=== PATIENT | male | born 1985 | race Caucasian/White ===

== ENCOUNTER 2019-04-11 17:28 | Inpatient (IN) | payer MEDICAID, OTHER, SELFPAY ==
[2019-04-11] VITALS (8 sets, daily range): BP systolic 109–115; BP diastolic 59–75; O2SAT 96
[~2019-04-11] VITALS: Ht 175.3 cm; Wt 87.4 kg
[~2019-04-11 17:28] MED LIST: BUSP15TA47 PO; BUSP30TA PO; LAMI25TA PO; SERO200T PO
[2019-04-11] MEDS ORDERED: PROPOFOL 1,000 MG in APPROPRIATE DILUENT 1 EA IV SCH (17:45)
[2019-04-11] MEDS ORDERED: QUET1TAB10 PO (17:59)
[2019-04-11] MEDS ORDERED: PHARMACY COMMENT (18:00)
[2019-04-11 18:04] LABS: ABG pH (ARTERIAL) 7.365 UNITS (7.350-7.450)
[2019-04-11 18:05] LABS: ABG BASE EXCESS -4.2 (-2.0-2.0); ABG HCO3 20.5 MEQ/L (22.0-26.0); ABG O2 SATURATION 98.3 % (95.0-99.0); ABG PARTIAL PRESSURE CO2 36.7 mmHg (35.0-45.0); ABG PARTIAL PRESSURE O2 113.5 mmHg (75.0-100.0); ABG TOTAL CO2 21.6 MEQ/L (22.0-29.0)
[2019-04-11] MEDS ORDERED: MORPHINE 4 MG/ML 1ML VIAL/SYRINGE (J2270) IV PRN (18:30)
[2019-04-11 18:35] LABS: HEMATOCRIT 41.2 % (42.0-52.0); HEMOGLOBIN 13.8 g/dl (13.5-17.5); MEAN CORPUSCULAR HEMOGLOBIN 29.7 pg (27.0-33.0); MEAN CORPUSCULAR HGB CONC 33.5 g/dl (32.0-36.5); MEAN CORPUSCULAR VOLUME 88.6 fl (80.0-96.0); PLATELET COUNT, AUTOMATED 247 10^3/uL (150-450); RED BLOOD COUNT 4.65 10^6/uL (4.30-6.10); WHITE BLOOD COUNT 11.2 10^3/uL (4.0-10.0)
[2019-04-11 19:00] LABS: ALBUMIN 3.1 GM/DL (3.2-5.2); ALT/SGPT 22 U/L (12-78); BILIRUBIN,TOTAL 0.3 MG/DL (0.2-1.0); BLOOD UREA NITROGEN 10 MG/DL (7-18); CALCIUM LEVEL 7.9 MG/DL (8.5-10.1); CARBON DIOXIDE LEVEL 24 MEQ/L (21-32); CHLORIDE LEVEL 113 MEQ/L (98-107); CREATININE FOR GFR 0.98 MG/DL (0.70-1.30); GLOMERULAR FILTRATION RATE > 60.0 (>60); GLUCOSE, FASTING 154 MG/DL (70-100); MAGNESIUM LEVEL 2.6 MG/DL (1.8-2.4); POTASSIUM SERUM 3.6 MEQ/L (3.5-5.1); SODIUM LEVEL 143 MEQ/L (136-145); TOTAL PROTEIN 6.1 GM/DL (6.4-8.2)
--- NOTE | 2019-04-11 20:04 | HPE ---
DATE OF ADMISSION: 04/11/2019 START TIME: 175 STOP TIME: 183 HISTORY AND PHYSICAL/CRITICAL CARE ADMISSION NOTE HISTORY OF PRESENT ILLNESS: I was called to attend Lloyd Cartagena here in the emergency department. The patient has been examined and the chart reviewed and I spoke at length with his mother at the bedside. In essence, this is a 34-year-old gentleman with a longstanding tobacco history, still smoking at least a pack a day. Mother says he regularly uses marijuana. She is unsure of any other illicit street drugs. He is known to have a longstanding history of mental illness. He has had a suicide attempt by Seroquel in the past. His mother said for that reason, they monitored his medications, but as of late, he demanded that he be allowed to control his own medications. Today he presented to [facility] emergency room (ER), stating he took a very large amount of Seroquel. He had a decline in his mental status with a prolonged QT interval and was intubated there. He also received esmolol, benzodiazepines, charcoal and lidocaine while there. He was transferred here for higher level of care. Mother reports no other chronic medical illnesses. She last spoke to him just short of a week ago. LISTED ALLERGIES: None. MEDICATIONS AT HOME: - Seroquel PAST MEDICAL HISTORY: 1. Attention deficit disorder. 2. Bipolar disease. 3. Personality disorder. 4. Previous substance abuse. 5. Previous suicide attempt. 6. He has had some dental surgery and some type of vein procedure on his chest. SOCIAL HISTORY: Regular use of alcohol and at least marijuana. Continues to smoke. FAMILY HISTORY: Noncontributory to his current status. REVIEW OF SYSTEMS: Otherwise as per the history of present illness (HPI) and what could be obtained from his mother. PHYSICAL EXAMINATION: Reveals a gentleman who appears his stated age, intubated and sedated here in the emergency room (ER). Heart rate 104 and regular, blood pressure 115 systolic, respiratory rate 15-16 and he does occasionally over-breath the ventilator. He is currently afebrile. HEENT: Shows pupils are midline reactive. There is some conjunctival irritation, but no scleral edema. Nasogastric (NG) tube and oral endotracheal tube are in place. Membranes are moist. Trachea is in the midline. CHEST: Shows symmetric expansion. Rarest of rhonchi. No focal other adventitious breath sounds are identified. CARDIAC EXAM: Mildly tachycardic. Regular peripheral pulse palpable. No obvious edema. ABDOMEN: Obese, soft, with active bowel sounds. No obvious organomegaly or masses. EXTREMITIES: No cyanosis or clubbing. NEUROLOGIC: He is sedate. Chest x-ray obtained here in the ER shows the endotracheal tube and gastric tube to be in good position. No infiltrates or pneumothoraces. Blood gas done here in the ER on the current ventilator settings showed pH 7.365, PaCO2 36.7, PaO2 113.5, saturation 90.3%. It is not documented what oxygen level that is on. Chemistries are pending here. QT prolongation was noted at [facility] at QT corrected of 540. Here, down to 316. Laboratories at [facility] show white blood cell count of 10.6, hemoglobin 15.8, platelet count of 263,000. Sodium 139, potassium 3.9, chloride 100, CO2 22, BUN 11, creatinine 1.0, calcium 9.4. Coagulation studies unremarkable. Albumin 4.3, lactic acid 2.1. Salicylate and EtOH are both unremarkable. Magnesium 2.0. MOST PRESSING PROBLEMS REQUIRING MY IMMEDIATE PRESENCE AT THE BEDSIDE: 1. Seroquel overdose with altered mental status and prolonged QT interval. 2. Respiratory depression secondary to the above requiring mechanical ventilatory support. 3. Previous suicide attempt and known mental illness. At this point, we will continue on a propofol drip. He received charcoal at [facility]. His QT while here is acceptable. We will assure adequate IV hydration. He will be kept nothing by mouth. Ulcer and deep venous thrombosis (DVT) prophylaxis have been ordered. I had a long discussion with his mother at the bedside and other family members in the room regarding his critical status. Certainly, when he is able to be extubated, we will need direct involvement of psychiatry, as he clearly will need further help in that regard. At this point, he remains critically ill. We will facilitate care into the intensive care unit. I left the bedside at 1836 hours. 41 minutes of critical care time at the bedside, not including procedures.
[2019-04-11] MEDS: KCL 20MEQ IN D5/0.45NS 1000ML 1,000 ML IV SCH (20:11)
[2019-04-11] MEDS: IPRATROPIUM 0.5MG/ALBUTEROL 2.5MG INH SOL UD 3ML (DUONEB)(J7620) NEB SCH ×2 (20:11→23:27)
[2019-04-11] MEDS: PROPOFOL 1,000 MG in APPROPRIATE DILUENT 1 EA IV SCH ×2 (20:37→23:00)
[2019-04-11] MEDS ORDERED: PANTOPRAZOLE 40MG INJ (PROTONIX) (C9113) IV SCH (21:00)
[2019-04-11] MEDS: CHLORHEXIDINE GLUCONATE 0.12 % 15ML UDC (PERIDEX ORAL RINSE) MT SCH (22:31)
[2019-04-11] MEDS: HEPARIN SOD (PORCINE) 5000 UNITS/ML VIAL SC SCH (22:31)
[2019-04-11 22:36] LABS: ABG BASE EXCESS -2.1 (-2.0-2.0); ABG HCO3 23.1 MEQ/L (22.0-26.0); ABG O2 SATURATION 99.3 % (95.0-99.0); ABG PARTIAL PRESSURE CO2 40.9 mmHg (35.0-45.0); ABG PARTIAL PRESSURE O2 170.1 mmHg (75.0-100.0); ABG STANDARD HCO3 22.8 MEQ/L (22.0-26.0); ABG TOTAL CO2 24.3 MEQ/L (22.0-29.0); ABG pH (ARTERIAL) 7.369 UNITS (7.350-7.450)
[2019-04-12] VITALS (16 sets, daily range): BP systolic 99–143; BP diastolic 56–82
[2019-04-12] MEDS: PROPOFOL 1,000 MG in APPROPRIATE DILUENT 1 EA IV SCH ×2 (03:01→06:16)
[2019-04-12] MEDS: IPRATROPIUM 0.5MG/ALBUTEROL 2.5MG INH SOL UD 3ML (DUONEB)(J7620) NEB SCH ×6 (03:32→23:47)
[2019-04-12] MEDS: MIDAZOLAM INJ 2 MG/2 ML VIAL (J2250) IV PRN ×2 (04:32→05:51)
[2019-04-12] MEDS: KCL 20MEQ IN D5/0.45NS 1000ML 1,000 ML IV SCH ×2 (04:32→13:11)
[2019-04-12 05:01] LABS: BASO # 0.1 10^3/uL (0.0-0.2); BASO % 0.7 % (0.0-1.0); EOS # 0.2 10^3/uL (0.0-0.50); EOS % 2.4 % (0.0-3.0); HEMATOCRIT 43.1 % (42.0-52.0); HEMOGLOBIN 14.3 g/dl (13.5-17.5); MEAN CORPUSCULAR HEMOGLOBIN 29.7 pg (27.0-33.0); MEAN CORPUSCULAR HGB CONC 33.2 g/dl (32.0-36.5); MEAN CORPUSCULAR VOLUME 89.6 fl (80.0-96.0); MONO # 0.5 10^3/uL (0.0-0.8); MONO % 5.8 % (0.0-5.0); NEUTROPHILS % 56.9 % (36.0-66.0); PLATELET COUNT, AUTOMATED 241 10^3/uL (150-450); RED BLOOD COUNT 4.81 10^6/uL (4.30-6.10); WHITE BLOOD COUNT 8.7 10^3/uL (4.0-10.0)
[2019-04-12 05:17] LABS: ALBUMIN 3.1 GM/DL (3.2-5.2); ALT/SGPT 19 U/L (12-78); BILIRUBIN,TOTAL 0.3 MG/DL (0.2-1.0); BLOOD UREA NITROGEN 7 MG/DL (7-18); CARBON DIOXIDE LEVEL 24 MEQ/L (21-32); CHLORIDE LEVEL 114 MEQ/L (98-107); CHOLESTEROL LEVEL 164 MG/DL (< 200); CPK CREATINE PHOSPHOKINASE 55 U/L (39-308); CREATININE FOR GFR 0.97 MG/DL (0.70-1.30); GLOMERULAR FILTRATION RATE > 60.0 (>60); GLUCOSE, FASTING 131 MG/DL (70-100); LDH LACTATE DEHYDROGENASE 139 U/L (87-241); PHOSPHORUS LEVEL 2.9 MG/DL (2.5-4.9); POTASSIUM SERUM 3.5 MEQ/L (3.5-5.1); SODIUM LEVEL 146 MEQ/L (136-145); TOTAL PROTEIN 6.2 GM/DL (6.4-8.2); TRIGLYCERIDES LEVEL 183 MG/DL (<150)
[2019-04-12] MEDS: HEPARIN SOD (PORCINE) 5000 UNITS/ML VIAL SC SCH ×4 (05:55→19:40)
[2019-04-12 06:08] LABS: ABG BASE EXCESS -3.2 (-2.0-2.0); ABG HCO3 21.9 MEQ/L (22.0-26.0); ABG O2 SATURATION 97.2 % (95.0-99.0); ABG PARTIAL PRESSURE CO2 39.6 mmHg (35.0-45.0); ABG PARTIAL PRESSURE O2 95.1 mmHg (75.0-100.0); ABG STANDARD HCO3 21.8 MEQ/L (22.0-26.0); ABG TOTAL CO2 23.1 MEQ/L (22.0-29.0); ABG pH (ARTERIAL) 7.361 UNITS (7.350-7.450)
--- NOTE | 2019-04-12 08:04 | REP ---
REASON FOR EXAM: Status post intubation. PRIORS: None. The technique utilized in obtaining the radiograph has magnified the cardiac silhouette and accentuated the interstitial markings. A nasogastric tube is seen coursing the esophagus, the tip is beneath the diaphragmatic surface of the left lung presumably within the stomach. The tip of an endotracheal tube is seen in satisfactory position at the level of the aortic knob. There are a few bilateral basilar curvilinear opacities likely secondary to subsegmental atelectatic change. There is no pneumothorax. The osseous structures are within normal limits. IMPRESSION: Findings as described above. Electronically Signed by Gerson Gao DO 04/12/2019 08:30 A
[2019-04-12] MEDS: CHLORHEXIDINE GLUCONATE 0.12 % 15ML UDC (PERIDEX ORAL RINSE) MT SCH (09:00)
--- NOTE | 2019-04-12 09:18 | REP ---
HISTORY: Followup intubation. COMPARISON: 04/11/2019. The technique utilized in obtaining the radiograph has magnified the cardiac silhouette and accentuated the interstitial markings. The nasogastric tube and the endotracheal tube are unchanged. The lung harvey are essentially stable with clearing of a subtle opacity in the left CP angle, likely the result of subsegmental atelectatic change. There are no new abnormal opacities. The lung harvey are essentially. The heart is not enlarged. The osseous structures are stable. IMPRESSION: No acute cardiopulmonary disease. Findings as described above. Electronically Signed by Gerson Gao DO 04/12/2019 10:28 A
--- NOTE | 2019-04-12 10:42 | CCN ---
DATE OF SERVICE: 04/12/2019 START TIME: 829 STOP TIME: 911 I again attended Lloyd Cartagena here in the intensive care unit. Patient examined and chart reviewed. T-max overnight 97.8, heart rate generally in the 60s to 80s with a sinus mechanism. Blood pressure generally in the 130s. Respiratory rate 50 to 20 and unlabored. Inputs and outputs since admission approximately 1500 mL in with 2600 mL out. White blood cell count 8.7, hemoglobin 14.3, platelet count 241,000. No left shift. Sodium 146, potassium 3.5, chloride 114, CO2 24, BUN 7, creatinine 0.97. Blood gas done this morning on PRVC rate of 15, tidal volume 400, PEEP of 5, FiO2 of 21% show pH 7.361, pCO2 of 9.6, pO2 of 95. Chest x-ray shows no infiltrates. ET tube and NG tube in good position. On exam, he is sedate. Pupils are active. Sclera clear. Trachea is midline. Chest clear to both auscultation and percussion. Symmetric expansion. No other focal adventitious breath sounds on examination. Cardiac exam: Regular with no gallop. Peripheral pulses palpable, no edema. Abdomen soft, nontender with active bowel sounds. No hepatosplenomegaly or masses. Extremities: No cyanosis or clubbing. Neurologically, currently sedate. Propofol was discontinued. Within several minutes, he was much more interactive. Opened eyes to voice. Moves all extremities spontaneously. Good cough, good gag and was therefore extubated. Although somnolent, he is arousable. He does follow commands. Moves all extremities. Oxygen saturation 95% on room air. The most pressing problem requiring my immediate presence at the bedside: 1. Respiratory failure secondary to drug overdose. 2. Seroquel overdose with suicidal intent. 3. Mental illness. RECOMMENDATIONS: At this point, he has been extubated. I have spoken with Dr. Saida Smith who will assume his care from the hospitalist service. He will need a psychiatric evaluation as clearly he needs more help regarding his mental issues. He remains on ulcer and deep venous thrombosis (DVT) prophylaxis. He remains on aerosol therapy as he is a long time and continued tobacco abuser. No evidence of any infectious process, therefore no antibiotics are warranted. My hopes is that in the long run, he can get better control of his mental illness as this is at least second documented suicide attempt. I have spoke with Dr. Smith regarding his status. I left the bedside at 0912 hours. 42 minutes of critical care time at the bedside not including procedures.
--- NOTE | 2019-04-12 12:58 | HPEPDOC ---
General Date of Admission April 11, 2019 at 18:17 Chief Complaint The patient is a 34-year-old male admitted with a reason for visit of Od/ Respi ratory Failure Requiring Intubation. Source: Patient, RN/, Old records History of Present Illness This is a 34-year-old male with PMH of Depression and suicidal attempt in the past, Bipolar disorder, personality disorder, polysubstance use disorder, with a longstanding tobacco history, still smoking at least a pack a day, regularly uses marijuana was transferred here from [place] after a suicidal attempt with seroquel. He has had a suicide attempt by Seroquel in the past. His mother had said for that reason, they monitored his medications, but as of late, he demanded that he be allowed to control his own medications. He presented to [facility] emergency room (ER) on 04/11/19 stating he took a very large amount of Seroquel. He had a decline in his mental status with a prolonged QT interval and was intubated there. He also received esmolol, benzodiazepines, charcoal and lidocaine while there. He was transferred here for higher level of care. 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 This morning he was successfully extubated and transferred to the hospitalist service. On my interview he was somnolent but cooperative. He did say he took the seroquel as he wanted to kill himself. When i asked why he said that he did not like his life and has many problems in his life. When i asked what particularly happened that day to make him take the pills. He said "I do not want to go into it it is irrelevant". He complained of some cough has been just extubated and complained of a little soreness in his throat. He had the NG tube in which was connected to low suction with no output which was bothering his throat. Denied any SOB. Home Medications Scheduled Quetiapine Fumarate (Quetiapine Fumarate) 300 Mg Tablet, 300 MG PO QHS, (Reported) HAS NOT FILLED SINCE SEPTEMBER 2018 Miscellaneous Medications [Pharmacy Comment] , (Reported) OBTAINED MED LIST FROM PHARMACY Allergies Coded Allergies: No Known Allergies (Unverified , 10/14/14) Past Medical History Medical History Attention deficit disorder. Bipolar disease. Personality disorder. Previous substance abuse. Previous suicide attempt. 6. He has had some dental surgery and some type of vein procedure on his chest. Surgical History He has had some dental surgery and some type of vein procedure on his chest. Family History Mother healthy. Father with multiple cardiac surgeries. Siblings are healthy Social History * Smoker: current smoker Alcohol: other (daily use) Drugs: marijuana A-FIB/CHADSVASC A-FIB History Current/History of A-Fib/PAF?: No Review of Systems Constitutional: Denies: Chills, Fever, Night Sweats Eyes: Denies: Pain, Vision change ENT: Reports: Sore Throat; Denies: Head Aches, Ear Pain, Dysphagia Skin: Denies: Rash, Lesions, Breakdown Pulmonary: Reports: Cough; Denies: Dyspnea Cardiovascular: Denies: Chest Pain, Palpitations, Orthopnea, Paroxysmal Noc. Dyspnea, Lt Headedness Gastrointestinal: Denies: Nausea, Vomiting, Abdominal Pain, Diarrhea Hematologic: Denies: Bruising, Bleeding Excessively Musculoskeletal: Denies: Neck Pain, Back Pain, Joint Pain, Muscle Pain, Spasms Psych: Reports: Depression, Thoughts of Self Harm Physical Examination General Exam: Positive: Cooperative, No Acute Distress, Other (somnolent) Eye Exam: Positive: PERRLA, Conjunctiva & lids normal, EOMI; Negative: Sclera icteric ENT Exam: Positive: Atraumatic, Mucous membr. moist/pink, Pharynx Normal Neck Exam: Positive: Supple; Negative: JVD, thyromegaly Chest Exam: Positive: Clear to auscultation, Normal air movement Heart Exam: Positive: Rate Normal, Regular Rhythm, Normal S1, Normal S2; Negative: Murmurs, Rubs Telemetry: Positive: No significant arrhythmia Abdomen Exam: Positive: Normal bowel sounds, Soft; Negative: Tenderness, Hepatospenomegaly Extremity Exam: Positive: Normal pulses; Negative: Clubbing, Cyanosis, Edema Skin Exam: Positive: Nl turgor and temperature; Negative: Breakdown, Lesion Psych Exam: Positive: Memory Intact, Oriented x 3 Vital Signs Vital Signs Date Time Temp Pulse Resp B/P (MAP) Pulse Ox O2 Delivery O2 Flow Rate FiO2 04/12/19 07:30 68 15 98 21 04/12/19 04:00 97.8 135/82 (99) 04/11/19 20:37 Ventilator Laboratory Data Labs 24H Laboratory Tests 2 04/11/19 17:45: Blood Gas Bicarbonate Standard 21.0L, Arterial Blood pH 7.365, Arterial Blood Partial Pressure CO2 36.7, Arterial Blood Partial Pressure O2 113.5H, Arterial Blood Total CO2 21.6L, Arterial Blood HCO3 20.5L, Arterial Blood Base Excess - 4.2L, Arterial Blood Oxygen Saturation 98.3 04/11/19 18:15: Nucleated Red Blood Cells % (auto) 0.0, Anion Gap 6L, Glomerular Filtration Rate > 60.0, Blood Urea Nitrogen 10, Creatinine 0.98, Sodium Level 143, Potassium Level 3.6, Chloride Level 113H, Carbon Dioxide Level 24, Calcium Level 7.9L, Aspartate Amino Transf (AST/SGOT) 12, Alanine Aminotransferase (ALT/SGPT) 22, Alkaline Phosphatase 76, Total Bilirubin 0.3, Total Protein 6.1L, Albumin 3.1L, Magnesium Level 2.6H, Albumin/Globulin Ratio 1.03 04/11/19 22:24: Blood Gas Bicarbonate Standard 22.8, Arterial Blood pH 7.369, Arterial Blood Partial Pressure CO2 40.9, Arterial Blood Partial Pressure O2 170.1H, Arterial Blood Total CO2 24.3, Arterial Blood HCO3 23.1, Arterial Blood Base Excess - 2.1L, Arterial Blood Oxygen Saturation 99.3H 04/12/19 04:35: Nucleated Red Blood Cells % (auto) 0.0, Anion Gap 8, Glomerular Filtration Rate > 60.0, Blood Urea Nitrogen 7, Creatinine 0.97, Sodium Level 146H, Potassium Level 3.5, Chloride Level 114H, Carbon Dioxide Level 24, Calcium Level 8.0L, Aspartate Amino Transf (AST/SGOT) 10, Alanine Aminotransferase (ALT/SGPT) 19, Alkaline Phosphatase 75, Total Bilirubin 0.3, Total Protein 6.2L, Albumin 3.1L, Albumin/Globulin Ratio 1.00, Immature Granulocyte % (Auto) 0.2, White Blood Count 8.7, Red Blood Count 4.81, Hemoglobin 14.3, Hematocrit 43.1, Mean Corpuscular Volume 89.6, Mean Corpuscular Hemoglobin 29.7, Mean Corpuscular Hemoglobin Concent 33.2, Red Cell Distribution Width 13.1, Platelet Count 241, Neutrophils (%) (Auto) 56.9, Lymphocytes (%) (Auto) 34.0, Monocytes (%) (Auto) 5.8H, Eosinophils (%) (Auto) 2.4, Basophils (%) (Auto) 0.7, Neutrophils # (Auto) 5.0, Lymphocytes # (Auto) 3.0, Monocytes # (Auto) 0.5, Eosinophils # (Auto) 0.2, Basophils # (Auto) 0.1, Phosphorus Level 2.9, Lactate Dehydrogenase 139, Total Creatine Kinase 55, Triglycerides Level 183H, Cholesterol Level 164 04/12/19 05:54: Blood Gas Bicarbonate Standard 21.8L, Arterial Blood pH 7.361, Arterial Blood Partial Pressure CO2 39.6, Arterial Blood Partial Pressure O2 95.1, Arterial Blood Total CO2 23.1, Arterial Blood HCO3 21.9L, Arterial Blood Base Excess - 3.2L, Arterial Blood Oxygen Saturation 97.2 CBC/BMP Laboratory Tests 04/11/19 18:15 Red Blood Count 4.65, Mean Corpuscular Volume 88.6, Mean Corpuscular Hemoglobin 29.7, Mean Corpuscular Hemoglobin Concent 33.5, Red Cell Distribution Width 13.0, Calcium Level 7.9 L, Aspartate Amino Transf (AST/SGOT) 12, Alanine Aminotransferase (ALT/SGPT) 22, Alkaline Phosphatase 76, Total Bilirubin 0.3, Total Protein 6.1 L, Albumin 3.1 L 04/12/19 04:35 Red Blood Count 4.81, Mean Corpuscular Volume 89.6, Mean Corpuscular Hemoglobin 29.7, Mean Corpuscular Hemoglobin Concent 33.2, Red Cell Distribution Width 13.1, Calcium Level 8.0 L, Aspartate Amino Transf (AST/SGOT) 10, Alanine Aminotransferase (ALT/SGPT) 19, Alkaline Phosphatase 75, Total Bilirubin 0.3, Total Protein 6.2 L, Albumin 3.1 L, Neutrophils (%) (Auto) 56.9, Lymphocytes (%) (Auto) 34.0, Monocytes (%) (Auto) 5.8 H, Eosinophils (%) (Auto) 2.4, Basophils (%) (Auto) 0.7, Neutrophils # (Auto) 5.0, Lymphocytes # (Auto) 3.0, Monocytes # (Auto) 0.5, Eosinophils # (Auto) 0.2, Basophils # (Auto) 0.1, Phosphorus Level 2.9, Lactate Dehydrogenase 139, Total Creatine Kinase 55, Triglycerides Level 183 H, Cholesterol Level 164 Assessment/Plan This is a 34-year-old male with PMH of Depression and suicidal attempt in the past, Bipolar disorder, personality disorder, polysubstance use disorder, with a longstanding tobacco history, still smoking at least a pack a day, regularly u ses marijuana was transferred here from [place] after a suicidal attempt with seroquel. He has had a suicide attempt by Seroquel in the past. His mother said for that reason, they monitored his medications, but as of late, he demanded that he be allowed to control his own medications. He presented to [facility] emergency room (ER) on 04/11/19 stating he took a very large amount of Seroquel. He had a decline in his mental status with a prolonged QT interval and was intubated there. He also received esmolol, benzodiazepines, charcoal and lidocaine while there. He was transferred here for higher level of care. 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 This morning he was s uccessfully extubated and transferred to the hospitalist service. Toxic Metabolic encephalopathy due to drug overdose requiring intubation and mechanical ventilation for airway protection successfully extubated on 04/12/19 QT prolongation due to Seroquel seen in EKG of other hospital . We had 3 ekgs here none of them showed QTc prolongation Intentional drug overdose with seroquel treated as per poison control recommendations. continue one on one observation Multiple Psychiatric issues will consult psychiatry will probably need [facility] admission. Plan / VTE VTE Prophylaxis Ordered?: Yes FOREST HARDIN MD April 12, 2019 12:50
[2019-04-12] MEDS: NICOTINE 14 MG/24 HR TRANSDERMAL TD SCH (14:55)
--- NOTE | 2019-04-12 15:11 | ECGEPIP ---
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
--- NOTE | 2019-04-12 15:12 | ECGEPIP ---
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 Not significantly changed from the previous day. Electronically Signed On 04-12-2019 15:12:45 EDT by Bertrand Lopes
--- NOTE | 2019-04-12 17:47 | ECGEPIP ---
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
[2019-04-13] MEDS: IPRATROPIUM 0.5MG/ALBUTEROL 2.5MG INH SOL UD 3ML (DUONEB)(J7620) NEB SCH ×2 (03:02→08:00)
[2019-04-13] MEDS: HEPARIN SOD (PORCINE) 5000 UNITS/ML VIAL SC SCH (03:03)
[2019-04-13 06:00] VITALS: BP 122/86
[2019-04-13 06:02] LABS: BASO # 0.1 10^3/uL (0.0-0.2); BASO % 1.2 % (0.0-1.0); EOS # 0.2 10^3/uL (0.0-0.50); EOS % 2.5 % (0.0-3.0); HEMATOCRIT 43.9 % (42.0-52.0); HEMOGLOBIN 14.4 g/dl (13.5-17.5); LYMPH % 36.9 % (24.0-44.0); MEAN CORPUSCULAR HEMOGLOBIN 29.3 pg (27.0-33.0); MEAN CORPUSCULAR HGB CONC 32.8 g/dl (32.0-36.5); MEAN CORPUSCULAR VOLUME 89.2 fl (80.0-96.0); MONO # 0.6 10^3/uL (0.0-0.8); NEUTROPHILS # 4.3 10^3/uL (1.8-7.7); NEUTROPHILS % 52.2 % (36.0-66.0); PLATELET COUNT, AUTOMATED 243 10^3/uL (150-450); RED BLOOD COUNT 4.92 10^6/uL (4.30-6.10); WHITE BLOOD COUNT 8.2 10^3/uL (4.0-10.0)
[2019-04-13 06:26] LABS: ALBUMIN 2.9 GM/DL (3.2-5.2); ALT/SGPT 13 U/L (12-78); BILIRUBIN,TOTAL 0.2 MG/DL (0.2-1.0); BLOOD UREA NITROGEN 9 MG/DL (7-18); CALCIUM LEVEL 8.2 MG/DL (8.5-10.1); CARBON DIOXIDE LEVEL 25 MEQ/L (21-32); CHLORIDE LEVEL 113 MEQ/L (98-107); CHOLESTEROL LEVEL 140 MG/DL (< 200); CPK CREATINE PHOSPHOKINASE 49 U/L (39-308); CREATININE FOR GFR 0.97 MG/DL (0.70-1.30); GLOMERULAR FILTRATION RATE > 60.0 (>60); GLUCOSE, FASTING 88 MG/DL (70-100); LDH LACTATE DEHYDROGENASE 164 U/L (87-241); PHOSPHORUS LEVEL 4.3 MG/DL (2.5-4.9); POTASSIUM SERUM 3.6 MEQ/L (3.5-5.1); SODIUM LEVEL 143 MEQ/L (136-145); TOTAL PROTEIN 6.1 GM/DL (6.4-8.2); TRIGLYCERIDES LEVEL 121 MG/DL (<150)
[2019-04-13] MEDS: NICOTINE 14 MG/24 HR TRANSDERMAL TD SCH (09:00)
--- NOTE | 2019-04-13 10:11 | DS.PDOC ---
Discharge Summary General Date of Admission April 11, 2019 at 18:17 Date of Discharge 04/13/19 Discharge Summary PROCEDURES PERFORMED DURING STAY: [None]. DISCHARGE DIAGNOSES: Acute respiratory failure due to drug overdose Toxic metabolic encephalopathy due to drug overdose. Suicidal attempt By Seroquel Polysubstance dependence smoker Multiple psychiatric issues. COMPLICATIONS/CHIEF COMPLAINT: Od/ Respiratory Failure Requiring Intubation. HISTORY OF PRESENT ILLNESS: See history and physical HOSPITAL COURSE: This is a 34-year-old male with PMH of Depression and suicidal attempt in the past, Bipolar disorder, personality disorder, polysubstance use disorder, with a longstanding tobacco history, still smoking at least a pack a day, regularly uses marijuana was transferred here from [place] after a suicidal attempt with seroquel. He has had a suicide attempt by Seroquel in the past. His mother said for that reason, they monitored his medications, but as of late, he demanded that he be allowed to control his own medications. He presented to [place] emergency room (ER) on 04/11/19 stating he took a very large amount of Seroquel. He had a decline in his mental status with a prolonged QT interval and was intubated there. He also received esmolol, benzodiazepines, charcoal and lidocaine while there. He was transferred here for higher level of care. He was admitted directly to ICU under the fur drummer's care.the next day he was successfully extubated and transferred to the hospitalist service. Toxic Metabolic encephalopathy and acute respiratory failure due to drug overdose requiring intubation and mechanical ventilation for airway protection successfully extubated on 04/12/19 QT prolongation due to Seroquel seen in EKG of other hospital . We had 3 ekgs here none of them showed QTc prolongation telemetry did not show any cardiac arrhythmias. Intentional drug overdose with seroquel treated as per poison control recommendations. continue one on one observation Multiple Psychiatric issues will need to go to Inpatient mental health. DISCHARGE MEDICATIONS: Please see below. ALLERGIES: Please see below. PHYSICAL EXAMINATION ON DISCHARGE: VITAL SIGNS: Please see below. General Exam: Positive: Cooperative, No Acute Distress Eye Exam: Positive: PERRLA, Conjunctiva & lids normal, EOMI; Negative: Sclera icteric ENT Exam: Positive: Atraumatic, Mucous membr. moist/pink, Pharynx Normal Neck Exam: Positive: Supple; Negative: JVD, thyromegaly Chest Exam: Positive: Clear to auscultation, Normal air movement Heart Exam: Positive: Rate Normal, Regular Rhythm, Normal S1, Normal S2; Negative: Murmurs, Rubs Telemetry: Positive: No significant arrhythmia Abdomen Exam: Positive: Normal bowel sounds, Soft; Negative: Tenderness, Hepatospenomegaly Extremity Exam: Positive: Normal pulses; Negative: Clubbing, Cyanosis, Edema Skin Exam: Positive: Nl turgor and temperature; Negative: Breakdown, Lesion Psych Exam: Positive: Memory Intact, Oriented x 3 LABORATORY DATA: Please see below. ACTIVITY: [As tolerated]. DIET: As tolerated DISPOSITION: [facility] DISCHARGE INSTRUCTIONS: Follow up with PMD 2 weeks aftr discharge DISCHARGE CONDITION: [Stable]. TIME SPENT ON DISCHARGE: 25 mins. Vital Signs/I&Os Vital Signs Date Time Temp Pulse Resp B/P (MAP) Pulse Ox O2 Delivery O2 Flow Rate FiO2 04/13/19 06:00 98.2 81 18 122/86 (98) 97 04/12/19 11:00 40 04/11/19 20:37 Ventilator I&O- Last 24 Hours up to 6 AM 04/13/19 06:00 Intake Total 2170 ml Output Total 450 ml Balance 1720 ml Laboratory Data Labs 24H Laboratory Tests 2 04/13/19 05:30: Immature Granulocyte % (Auto) 0.2, White Blood Count 8.2, Red Blood Count 4.92, Hemoglobin 14.4, Hematocrit 43.9, Mean Corpuscular Volume 89.2, Mean Corpuscular Hemoglobin 29.3, Mean Corpuscular Hemoglobin Concent 32.8, Red Cell Distribution Width 13.3, Platelet Count 243, Neutrophils (%) (Auto) 52.2, Lymphocytes (%) (Auto) 36.9, Monocytes (%) (Auto) 7.0H, Eosinophils (%) (Auto) 2.5, Basophils (%) (Auto) 1.2H, Neutrophils # (Auto) 4.3, Lymphocytes # (Auto) 3.0, Monocytes # (Auto) 0.6, Eosinophils # (Auto) 0.2, Basophils # (Auto) 0.1, Nucleated Red Blood Cells % (auto) 0.0, Anion Gap 5L, Glomerular Filtration Rate > 60.0, Blood Urea Nitrogen 9, Creatinine 0.97, Sodium Level 143, Potassium Level 3.6, Chloride Level 113H, Carbon Dioxide Level 25, Calcium Level 8.2L, Phosphorus Level 4.3#, Aspartate Amino Transf (AST/SGOT) 14, Alanine Aminotransferase (ALT/SGPT) 13, Lactate Dehydrogenase 164, Total Creatine Kinase 49, Alkaline Phosphatase 77, Total Bilirubin 0.2, Triglycerides Level 121, Cholesterol Level 140, Total Protein 6.1L, Albumin 2.9L, Albumin/Globulin Ratio 0.91L CBC/BMP Laboratory Tests 04/13/19 05:30 Red Blood Count 4.92, Mean Corpuscular Volume 89.2, Mean Corpuscular Hemoglobin 29.3, Mean Corpuscular Hemoglobin Concent 32.8, Red Cell Distribution Width 13.3, Neutrophils (%) (Auto) 52.2, Lymphocytes (%) (Auto) 36.9, Monocytes (%) (Auto) 7.0 H, Eosinophils (%) (Auto) 2.5, Basophils (%) (Auto) 1.2 H, Neutrophils # (Auto) 4.3, Lymphocytes # (Auto) 3.0, Monocytes # (Auto) 0.6, Eosinophils # (Auto) 0.2, Basophils # (Auto) 0.1, Calcium Level 8.2 L, Phosphorus Level 4.3 #, Aspartate Amino Transf (AST/SGOT) 14, Alanine Aminotransferase (ALT/SGPT) 13, Lactate Dehydrogenase 164, Total Creatine Kinase 49, Alkaline Phosphatase 77, Total Bilirubin 0.2, Triglycerides Level 121, Cholesterol Level 140, Total Protein 6.1 L, Albumin 2.9 L Discharge Medications Scheduled Quetiapine Fumarate (Quetiapine Fumarate) 300 Mg Tablet, 300 MG PO QHS, (Re ported) HAS NOT FILLED SINCE SEPTEMBER 2018 Miscellaneous Medications [Pharmacy Comment] , (Reported) OBTAINED MED LIST FROM PHARMACY Allergies Coded Allergies: No Known Allergies (Unverified , 10/14/14) FOREST HARDIN MD April 13, 2019 10:11
[2019-04-13] MEDS ORDERED: NICO14PA TD (10:13)
== END 2019-04-13 11:26 | disposition home or self-care (01) | DRG 812 ==
LOC: M ED 17:28 → EDBD 17:28 → M ED INP 18:17 → M ICU 19:47 → M MSPAV 04-12 15:22
PROVIDERS: ADMIT Internal Medicine Pulmonary Disease; ATTEND Internal Medicine Nephrology
PROC: 5A1935Z Respiratory Ventilation, Less than 24 Consecutive Hours (ICD-10-PCS; principal; 2019-04-11)
DX: T43.592A Poisoning by other antipsychotics and neuroleptics, intentional self-harm, initial encounter (principal); G92 Toxic encephalopathy; J96.00 Acute respiratory failure, unspecified whether with hypoxia or hypercapnia; F17.200 Nicotine dependence, unspecified, uncomplicated; F31.9 Bipolar disorder, unspecified; F12.90 Cannabis use, unspecified, uncomplicated; F90.9 Attention-deficit hyperactivity disorder, unspecified type

== ENCOUNTER 2019-04-13 10:28 | Inpatient (IN) | payer SELFPAY ==
[~2019-04-13] VITALS: Ht 167.6 cm; Wt 79.5 kg
[2019-04-13] MEDS: FLUoxetine 20 MG CAP PO SCH (09:00)
[~2019-04-13 10:28] MED LIST changes: +NICO14PA TD; +PHARMACY COMMENT; +QUET1TAB10 PO
[2019-04-13] MEDS ORDERED: ACETAMINOPHEN TAB 650MG DOSE (2X325MG) PO PRN (11:30)
[2019-04-13] MEDS ORDERED: MAALOX 30 ML SUSP *UDC PO PRN (11:30)
[2019-04-13] MEDS ORDERED: MOM 30ML SUSPENSION UDC PO PRN (11:30)
[2019-04-13] MEDS ORDERED: traZODone 50 MG TAB PO PRN (11:30)
[2019-04-13 11:39] VITALS: BP 138/95
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
[2019-04-13] MEDS ORDERED: traZODone 100 MG TAB PO PRN (13:15)
--- NOTE | 2019-04-13 17:13 | HPEPDOC ---
General Date of Admission April 13, 2019 at 10:28 Attending Physician: MARTY KIM MD Chief Complaint The patient is a 34-year-old male admitted with a reason for visit of Bipolar 2,Substance Abuse. Source: RN/MD Exam Limitations: Clinical conditions Timing/Duration: Unsure Severity: Severe Associated Symptoms: Unobtainable History of Present Illness Patient is a 34-year-old male, admitted after suicide attempt. Patient was initially intubated and then extubated and transferred to the inpatient psychiatric unit for evaluation and management of depression and suicidal behavior. On evaluation, he was on willing to provide history. He states he has answered all these questions before Home Medications Scheduled Nicotine (Nicotine Patch) 14 Mg Patch.td24, 1 PATCH TD DAILY Quetiapine Fumarate (Quetiapine Fumarate) 300 Mg Tablet, 300 MG PO QHS, (Reported) HAS NOT FILLED SINCE SEPTEMBER 2018 Miscellaneous Medications [Pharmacy Comment] , (Reported) OBTAINED MED LIST FROM PHARMACY Allergies Coded Allergies: No Known Allergies (Unverified , 10/14/14) Past Medical History Medical History Depression Nicotine dependence Polysubstance abuse ADD Antisocial Personality Cyclothymic disorder A-FIB/CHADSVASC A-FIB History Current/History of A-Fib/PAF?: No Current Oral Anticoagulant The: No Review of Systems Other systems Not completed due to patients clinical state and reluctance Physical Examination Other physical findings GENERAL: NAD SKIN : Warm, dry intact HEENT: Atraumatic, normocephalic, PERRL, moist mucous membrane CARDIOVASCULAR: Regular rate and rhythm, S1S2, no JVD, no edema, distal pulses + and palpable RESP: CTAB, no accessory muscle use noted ABDOMEN: BS+ non distended non tender MS: no joint deformities NEURO: Alert and oriented x 3, CN2-12 grossly intact PSYCH: flat affect Vital Signs Vital Signs Date Time Temp Pulse Resp B/P (MAP) Pulse Ox O2 Delivery O2 Flow Rate FiO2 04/13/19 11:39 98.4 75 16 138/95 (109) 98 Assessment/Plan Suicide attempt Cardiopulmonary arrest Nicotine dependence PLAN -Patient has been stabilized medically and his status post intubation and extubation -All his problems at this time are psychiatric in nature -Continued management by primary team DVT prophylaxis not indicated at this time since patient is frequently ambulatory and low risk for DVT Plan / VTE VTE Prophylaxis Ordered?: No VTE Exclusion Mechanical Proph: Low Risk for VTE GINO PADGETT. SQL DAT[employer]ASE PROGRAMMER April 13, 2019 17:13
[2019-04-13 18:00] VITALS: BP 130/70
[2019-04-13] MEDS: hydrOXYzine 50 MG TAB PO PRN ×2 (18:35→22:35)
[2019-04-13] MEDS: QUEtiapine FUMARATE 100 MG TAB PO SCH (20:19)
[2019-04-13] MEDS ORDERED: NICOTINE 21MG/24HR 1 EA TRANSDERMAL TD ONE (20:30)
[2019-04-13] MEDS ORDERED: NICOTINE 14 MG/24 HR TRANSDERMAL TD ONE (20:30)
[2019-04-14 06:43] VITALS: BP 111/59
[2019-04-14] MEDS: FLUoxetine 20 MG CAP PO SCH ×2 (09:00→15:46)
[2019-04-14] MEDS: NICOTINE 14 MG/24 HR TRANSDERMAL TD SCH (09:00)
[2019-04-14] MEDS: hydrOXYzine 50 MG TAB PO PRN ×3 (12:17→21:23)
[2019-04-14] MEDS ORDERED: traZODone 50 MG TAB PO PRN (15:45)
--- NOTE | 2019-04-14 15:56 | MHIPNPDOC ---
[facility] Progress Note Progress Note DATE OF SERVICE: 04/14/19 HISTORY: 34-year-old male in long-standing relationship that has resulted in numerous rights and suicide attempts over the years. He had this is complicated by patient's polysubstance abuse. VITAL SIGNS: See below. NEW TEST RESULTS: . CURRENT MEDICATIONS: See below. MENTAL STATUS EXAMINATION: Patient is a, 34-year old male, who is, requesting more medications for anxiety., Not expressing any suicidal thought at this time Speech: Is, normal. Language skills are adequate. Thought processes including:. No disturbance of thought process, except minimization. Thought content: Requesting medications. Abstract reasoning, and computation: Intact. Description of associations:. Loose associations. Description of abnormal or psychotic thoughts:. No psychotic thought. Judgment:, Poor. Insight:, Poor. Orientation:, Fully oriented. Recent and remote memory: Intact. Attention span and concentration:. No disturbance. Language: As above. Fund of knowledge:. Full. Mood: Euthymic. Affect:, Neutral. DIAGNOSES: 1. Adjustment disorder with depressed mood. 2.. Mixed personality disorder. 3. Polysubstance abuse. ASSESSMENT: Following argument with girlfriend of many years. Patient made lawrence cide attempt using Seroquel overdose and needing ventilator. Patient uses cocaine and amphetamines, as well as Seroquel, which he overdosed on MANAGEMENT PLAN: Prescribed Atarax 100 mg when necessary, and Prozac with smaller dose of Seroquel based on past history outpatient planning will be problematic. TIME SPENT:, 30 minutes. Vital Signs Vital Signs Date Time Temp Pulse Resp B/P (MAP) Pulse Ox O2 Delivery O2 Flow Rate FiO2 04/14/19 06:43 96.9 73 14 111/59 (76) 04/13/19 11:39 98 Current Medications Current Medications Acetaminophen (Tylenol Tab) 650 mg Q6HP PRN PO HEADACHE or DISCOMFORT; Start 04/13/19 at 11:30 Al Hydrox/Mg Hydrox/Simethicone (Mylanta) 30 ml Q4HP PRN PO HEARTBURN/INDIGESTION; Start 04/13/19 at 11:30 Fluoxetine HCl (PROzac) 20 mg QAM PO ; Start 04/13/19 at 09:00 Hydroxyzine HCl (Atarax) 50 mg Q4HP PRN PO ANXIETY/AGITATION Last administered on 04/14/19at 12:17; Start 04/13/19 at 18:30 Magnesium Hydroxide (Milk Of Magnesia) 30 ml DAILYPRN PRN PO CONSTIPATION; Start 04/13/19 at 11:30 Nicotine (Nicoderm Cq 14mg) 1 patch DAILY TD ; Start 04/14/19 at 09:00 Quetiapine Fumarate (SEROquel) 100 mg QHS PO Last administered on 04/13/19at 20:19; Start 04/13/19 at 21:00 Trazodone HCl (Desyrel) 50 mg QHSP PRN PO INSOMNIA; Start 04/13/19 at 11:30; Stop 04/13/19 at 13:17; Status DC Trazodone HCl (Desyrel) 100 mg QHSP PRN PO INSOMNIA; Start 04/13/19 at 13:15 Allergies Coded Allergies: No Known Allergies (Unverified , 10/14/14) A-FIB/CHADSVASC A-FIB History Current/History of A-Fib/PAF?: No Current Oral Anticoagulant The: No Treatment Treatment ordered: NONE MARIA TAO MD April 14, 2019 15:56
[2019-04-14 18:04] VITALS: BP 142/70
[2019-04-14] MEDS: QUEtiapine FUMARATE 100 MG TAB PO SCH (21:23)
[2019-04-15] MEDS: hydrOXYzine 50 MG TAB PO PRN ×4 (01:37→20:24)
[2019-04-15] MEDS: NICOTINE 14 MG/24 HR TRANSDERMAL TD SCH (08:46)
[2019-04-15] MEDS ORDERED: FLUoxetine 10 MG CAP PO SCH (09:00)
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
[2019-04-15 18:00] VITALS: BP 139/80
[2019-04-15] MEDS: QUEtiapine FUMARATE 100 MG TAB PO SCH (20:25)
[2019-04-15] MEDS: MIRTAZAPINE 15 MG TAB PO SCH (20:25)
[2019-04-16 06:49] VITALS: BP 113/66
[2019-04-16] MEDS: NICOTINE 14 MG/24 HR TRANSDERMAL TD SCH (09:00)
[2019-04-16] MEDS: FLUoxetine 20 MG CAP PO SCH (09:51)
[2019-04-16] MEDS: hydrOXYzine 50 MG TAB PO PRN ×3 (11:43→20:27)
--- NOTE | 2019-04-16 14:21 | MHIPNPDOC ---
[facility] Progress Note Progress Note DATE OF SERVICE: 04/16/19 HISTORY: 34-year-old male with polysubstance abuse and relationship problems admitted after making profound suicide attempt and Seroquel. VITAL SIGNS: See below. NEW TEST RESULTS:. None. CURRENT MEDICATIONS: See below. MENTAL STATUS EXAMINATION: Patient is a 34-year old male, who is improved mood and denies suicidal plan or ideation at this time. Speech: Is intact. Language skills are intact. Thought processes including:. No psychotic thoughts. Thought content:, Preoccupied with girlfriend. Abstract reasoning, and computation: Able to abstract. Description of associations: Loose association. Description of abnormal or psychotic thoughts:. No psychotic thoughts. Judgment:, Poor. Insight:, Poor. Orientation: Intact. Recent and remote memory: Intact. Attention span and concentration: In intact. Language:. No disturbance. Fund of knowledge: Intact. Mood:. Bright. Affect:, Cheerful. DIAGNOSES: 1. Major depression. 2., Polysubstance abuse. 3., Relationship stressors. ASSESSMENT:. As above MANAGEMENT PLAN:. Outpatient management. TIME SPENT:, 30 minutes. Vital Signs Vital Signs Date Time Temp Pulse Resp B/P (MAP) Pulse Ox O2 Delivery O2 Flow Rate FiO2 04/16/19 06:49 97.3 63 14 113/66 (82) 04/13/19 11:39 98 Current Medications Current Medications Acetaminophen (Tylenol Tab) 650 mg Q6HP PRN PO HEADACHE or DISCOMFORT; Start 04/13/19 at 11:30 Al Hydrox/Mg Hydrox/Simethicone (Mylanta) 30 ml Q4HP PRN PO HEARTBURN/INDIGESTION; Start 04/13/19 at 11:30 Fluoxetine HCl (PROzac) 20 mg QAM PO Last administered on 04/14/19at 15:46; Start 04/13/19 at 09:00; Stop 04/15/19 at 07:57; Status DC Fluoxetine HCl (PROzac) 30 mg QAM PO Last administered on 04/15/19at 08:43; Start 04/15/19 at 09:00; Stop 04/15/19 at 15:29; Status DC Fluoxetine HCl (PROzac) 40 mg QAM PO Last administered on 04/16/19at 09:51; Start 04/16/19 at 09:00 Hydroxyzine HCl (Atarax) 50 mg Q4HP PRN PO ANXIETY/AGITATION Last administered on 04/14/19at 12:17; Start 04/13/19 at 18:30; Stop 04/14/19 at 15:43; Status DC Hydroxyzine HCl (Atarax) 100 mg Q4HP PRN PO ANXIETY/AGITATION Last administered on 04/16/19at 11:43; Start 04/14/19 at 15:45 Magnesium Hydroxide (Milk Of Magnesia) 30 ml DAILYPRN PRN PO CONSTIPATION; Start 04/13/19 at 11:30 Mirtazapine (Remeron) 30 mg QHS PO Last administered on 04/15/19at 20:25; Start 04/15/19 at 21:00 Nicotine (Nicoderm Cq 14mg) 1 patch DAILY TD ; Start 04/14/19 at 09:00 Quetiapine Fumarate (SEROquel) 100 mg QHS PO Last administered on 04/14/19at 21:23; Start 04/13/19 at 21:00; Stop 04/15/19 at 07:57; Status DC Quetiapine Fumarate (SEROquel) 200 mg QHS PO Last administered on 04/15/19at 20:25; Start 04/15/19 at 21:00 Trazodone HCl (Desyrel) 50 mg QHSP PRN PO INSOMNIA; Start 04/13/19 at 11:30; Stop 04/13/19 at 13:17; Status DC Trazodone HCl (Desyrel) 100 mg QHSP PRN PO INSOMNIA; Start 04/13/19 at 13:15; Stop 04/14/19 at 15:43; Status DC Trazodone HCl (Desyrel) 150 mg QHSP PRN PO INSOMNIA Last administered on 04/14/19at 21:23; Start 04/14/19 at 15:45; Stop 04/15/19 at 07:57; Status DC Allergies Coded Allergies: No Known Allergies (Unverified , 10/14/14) A-FIB/CHADSVASC A-FIB History Current/History of A-Fib/PAF?: No Current Oral Anticoagulant The: No Treatment Treatment ordered: NONE MARIA TAO MD April 16, 2019 14:21
[2019-04-16 18:35] VITALS: BP 124/76
[2019-04-16] MEDS: QUEtiapine FUMARATE 100 MG TAB PO SCH (20:26)
[2019-04-16] MEDS: MIRTAZAPINE 15 MG TAB PO SCH (20:27)
[2019-04-17 06:40] VITALS: BP 108/62
[2019-04-17] MEDS ORDERED: FLUO20CA19 PO (07:44)
[2019-04-17] MEDS ORDERED: HYDRO50TAB PO (07:44)
[2019-04-17] MEDS ORDERED: QUET1TAB8 PO (07:44)
[2019-04-17] MEDS: FLUoxetine 20 MG CAP PO SCH (08:20)
[2019-04-17] MEDS: NICOTINE 14 MG/24 HR TRANSDERMAL TD SCH (08:20)
[2019-04-17] MEDS: hydrOXYzine 50 MG TAB PO PRN (08:49)
--- NOTE | 2019-04-17 16:47 | MHDSPDOC ---
[facility] Discharge Summary Discharge Summary DATE OF ADMISSION: April 13, 2019 at 10:28 DATE OF DISCHARGE: April 17, 2019 at 11:25 DISCHARGE DIAGNOSES: 1., Depression. 2., Polysubstance abuse. REASON FOR ADMISSION:, 34-year-old male took an large overdose of Seroquel, required ventilation was accused by patient's of making inappropriate comments. Patient denied. Generally he improved in affect and demeanor as well as mood and asked to be discharged as he felt he was not participating in groups and he was discharged to home and outpatient care and substance abuse. Care was suggested CONSULTANTS INVOLVED: TREATMENT AND PROGRESS ON THE UNIT : As above. HOSPITAL COURSE: Generally, although patient initially was irritable and caused some disruption in his mood improved and he requested discharge DISCHARGE ASSESSMENT:. Patient no longer suicidal and will be treated as outpatient MENTAL STATUS EXAMINATION ON DISCHARGE: Patient is a, 34-year old male, who is in improved mood. Speech is normal. Language skills are intact. Thought processes including:. Denies disturbance of thought process. Thought content: No abnormal thought content. Abstract reasoning, and computation: Intact. Description of associations:. No loose association. Description of abnormal or psychotic thoughts:. No psychotic thought. Judgment: Poor Insight:, Poor. Orientation to intact 3. Recent and remote memory:. Intact. Attention span and concentration: Fair. Language:. As above. Fund of knowledge:, Intact. Mood: Good. Affect:, Bright. MEDICATIONS ON DISCHARGE: -, Fluoxetine for depression Hydroxyzine for anxiety -, Seroquel for sleep PLAN/FOLLOWUP ARRANGEMENTS: Follow-up as per discharge plan. The amount of time spent in the coordination of care for this patient was approximately 30 minutes. Vital Signs/I&Os Vital Signs Date Time Temp Pulse Resp B/P (MAP) Pulse Ox O2 Delivery O2 Flow Rate FiO2 04/17/19 06:40 98.7 63 12 108/62 (77) 04/13/19 11:39 98 Medications Scheduled Fluoxetine Hcl (Fluoxetine HCl) 20 Mg Capsule, 40 MG PO QAM for Depression for 10 Days, #20 Quetiapine Fumarate (Quetiapine Fumarate) 100 Mg Tablet, 200 MG PO QHS for Anxiety for 7 Days, #14 Scheduled PRN Hydroxyzine HCl (Hydroxyzine HCl) 50 Mg Tablet, 100 MG PO TID PRN for ANXIETY/AGITATION for 7 Days, #42 Allergies Coded Allergies: No Known Allergies (Unverified , 10/14/14) MARIA TAO MD April 17, 2019 16:47
== END 2019-04-17 11:25 | disposition home or self-care (01) | DRG 754 ==
LOC: M PSY 10:28
PROVIDERS: ADMIT Psychiatry & Neurology Child & Adolescent Psychiatry; ATTEND Psychiatry & Neurology Child & Adolescent Psychiatry
DX: F32.9 Major depressive disorder, single episode, unspecified (principal); F60.2 Antisocial personality disorder; F17.200 Nicotine dependence, unspecified, uncomplicated

== ENCOUNTER 2019-05-09 12:45 | Inpatient (IN) | payer MEDICAID, OTHER, SELFPAY ==
[~2019-05-09] VITALS: Ht 170.2 cm; Wt 82.9 kg
[~2019-05-09 12:45] MED LIST changes: +FLUO20CA19 PO; +HYDRO50TAB PO; +QUET1TAB8 PO
[2019-05-09 13:25] LABS: HEMATOCRIT 45.6 % (42.0-52.0); HEMOGLOBIN 15.5 g/dl (13.5-17.5); MEAN CORPUSCULAR HEMOGLOBIN 29.6 pg (27.0-33.0); MEAN CORPUSCULAR VOLUME 87.2 fl (80.0-96.0); PLATELET COUNT, AUTOMATED 319 10^3/uL (150-450); RED BLOOD COUNT 5.23 10^6/uL (4.30-6.10); WHITE BLOOD COUNT 8.3 10^3/uL (4.0-10.0)
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
[2019-05-09 13:45] LABS: AMPHETAMINES LEVEL URINE NEGATIVE (NEGATIVE); BARBITURATES URINE NEGATIVE (NEGATIVE); BENZODIAZEPINES URINE NEGATIVE (NEGATIVE); CANNABINOIDS URINE POSITIVE (NEGATIVE); COCAINE METABOLITE URINE POSITIVE (NEGATIVE); METHADONE URINE NEGATIVE (NEGATIVE); OPIATES URINE NEGATIVE (NEGATIVE); PHENCYCLIDINE URINE NEGATIVE (NEGATIVE)
[2019-05-09 13:59] LABS: BLOOD UREA NITROGEN 10 MG/DL (7-18); CREATININE FOR GFR 1.14 MG/DL (0.70-1.30); GLUCOSE, FASTING 113 MG/DL (70-100)
[2019-05-09 14:00] LABS: ACETAMINOPHEN LEVEL < 2.0 UG/ML (10.0-30.0); ALBUMIN 3.7 GM/DL (3.2-5.2); ALT/SGPT 19 U/L (12-78); BILIRUBIN,DIRECT < 0.1 MG/DL (0.0-0.2); BILIRUBIN,TOTAL 0.4 MG/DL (0.2-1.0); CALCIUM LEVEL 8.7 MG/DL (8.5-10.1); CARBON DIOXIDE LEVEL 24 MEQ/L (21-32); CHLORIDE LEVEL 109 MEQ/L (98-107); CPK CREATINE PHOSPHOKINASE 83 U/L (39-308); ETHYL ALCOHOL (ETHANOL) < 0.003 % (0.000-0.010); GLOMERULAR FILTRATION RATE > 60.0 (>60); POTASSIUM SERUM 3.9 MEQ/L (3.5-5.1); SODIUM LEVEL 141 MEQ/L (136-145); TOTAL PROTEIN 7.1 GM/DL (6.4-8.2)
[2019-05-09] MEDS ORDERED: traZODone 50 MG TAB PO PRN (15:00)
[2019-05-09] MEDS ORDERED: MAALOX 30 ML SUSP *UDC PO PRN (15:00)
[2019-05-09] MEDS ORDERED: MOM 30ML SUSPENSION UDC PO PRN (15:00)
[2019-05-09] MEDS ORDERED: ADVITAB PO (15:54)
[2019-05-09] MEDS ORDERED: FLUO20CA19 PO (15:54)
[2019-05-09] MEDS ORDERED: QUET1TAB10 PO (15:54)
[2019-05-09] MEDS ORDERED: ACET25TA12 PO (15:54)
[2019-05-09] MEDS ORDERED: HYDR50TA70 PO (15:54)
[2019-05-09] MEDS: QUEtiapine FUMARATE 100 MG TAB PO SCH (21:12)
[2019-05-10 06:59] VITALS: BP 113/57
[2019-05-10] MEDS: NICOTINE 21MG/24HR 1 EA TRANSDERMAL TD SCH (09:00)
[2019-05-10] MEDS: CitaloPRAM (CeleXA) 20 MG TAB PO SCH (10:17)
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
--- NOTE | 2019-05-10 10:25 | HPEPDOC ---
General Date of Admission May 09, 2019 at 14:57 Date of Service: May 10, 2019 Attending Physician: MARTY KIM MD Chief Complaint The patient is a 34-year-old male admitted with a reason for visit of Unspecified Depressive Disorder. History of Present Illness Patient is a 34-year-old male, recently discharged on the of last month. He represented to mental health on account of suicidal ideation. Patient denies any medical history, but has a documented psychiatric history significant for depression, nicotine dependence, polysubstance abuse. On assessment, he denies any physical complaints, denies chest pain, shortness of breath, weakness, chills, fever, nausea, abdominal pain. Home Medications Scheduled Acetaminophen/Diphenhydramine (Acetaminophen Pm Caplet) 1 Each Tablet, 6 TABS PO QHS, (Reported) Fluoxetine Hcl (Fluoxetine HCl) 20 Mg Capsule, 40 MG PO QAM, (Reported) Hydroxyzine HCl (Hydroxyzine HCl) 50 Mg Tablet, 100 MG PO TID, (Reported) Quetiapine Fumarate (Quetiapine Fumarate) 300 Mg Tablet, 300 MG PO QHS, (Reported) Scheduled PRN Ibuprofen/Pseudoephedrine HCl (Advil Cold & Sinus Caplet) 1 Each Tablet, 1 TAB PO QHS PRN for CONGESTION, (Reported) Allergies Coded Allergies: No Known Allergies (Unverified , 10/14/14) Past Medical History Medical History Polysubstance abuse. Depression, Nicotine dependence Surgical History Denies any surgical history Family History Denies family history Social History * Smoker: greater than 1 pack/day Alcohol: Denies Drugs: cocaine, marijuana A-FIB/CHADSVASC A-FIB History Current/History of A-Fib/PAF?: No Current PO Anticoag Therapy: No Review of Systems Other systems A 10 point pertinent review of systems was completed, negative except as stated in the history of presenting illness. Physical Examination Other physical findings GENERAL: NAD SKIN : Warm, dry intact HEENT: Atraumatic, normocephalic, PERRL, moist mucous membrane CARDIOVASCULAR: Regular rate and rhythm, S1S2, no JVD, no edema, distal pulses + and palpable RESP: CTAB, no accessory muscle use noted ABDOMEN: BS+ non distended non tender MS: no joint deformities NEURO: Alert and oriented x 3, CN2-12 grossly intact PSYCH: no anxiety or agitation, flat affect. Vital Signs Vital Signs Date Time Temp Pulse Resp B/P (MAP) Pulse Ox O2 Delivery O2 Flow Rate FiO2 05/10/19 06:59 95.6 65 14 113/57 (75) 05/09/19 15:39 99 Room Air Laboratory Data Labs 24H Laboratory Tests 2 05/09/19 13:12: Nucleated Red Blood Cells % (auto) 0.0, Anion Gap 8, Glomerular Filtration Rate > 60.0, Calcium Level 8.7, Aspartate Amino Transf (AST/SGOT) 12, Alanine Aminotransferase (ALT/SGPT) 19, Alkaline Phosphatase 106, Total Bilirubin 0.4, Direct Bilirubin < 0.1, Total Creatine Kinase 83, Total Protein 7.1, Albumin 3.7, Albumin/Globulin Ratio 1.09, Thyroid Stimulating Hormone (TSH) 1.510, Salicylates Level 4.0L, Urine Amphetamines Screen NEGATIVE, Urine Benzodiazepines Screen NEGATIVE, Urine Opiates Screen NEGATIVE, Urine Methadone Screen NEGATIVE, Acetaminophen Level < 2.0L, Urine Barbiturates Screen NEGATIVE, Urine Phencyclidine Screen NEGATIVE, Urine Cocaine Metabolite Screen POSITIVEH, Urine Cannabinoids Screen POSITIVEH, Ethyl Alcohol Level < 0.003 CBC/BMP Laboratory Tests 05/09/19 13:12 Red Blood Count 5.23, Mean Corpuscular Volume 87.2, Mean Corpuscular Hemoglobin 29.6, Mean Corpuscular Hemoglobin Concent 34.0, Red Cell Distribution Width 12.6 Assessment/Plan Depression. Medical nonadherence Polysubstance abuse PLAN At this time patient has no acute medical problems requiring active follow-up and management. Reconsult medical team as needed Plan / VTE VTE Prophylaxis Ordered?: No VTE Exclusion Mechanical Proph: Low Risk for VTE GINO PADGETT May 10, 2019 10:25
[2019-05-10 18:00] VITALS: BP 113/64
[2019-05-10] MEDS: QUEtiapine FUMARATE 100 MG TAB PO SCH (20:07)
[2019-05-11 06:41] VITALS: BP 147/83
[2019-05-11] MEDS: CitaloPRAM (CeleXA) 20 MG TAB PO SCH (08:05)
[2019-05-11] MEDS: NICOTINE 21MG/24HR 1 EA TRANSDERMAL TD SCH (08:05)
--- NOTE | 2019-05-11 14:06 | MHIPNPDOC ---
[facility] Progress Note Progress Note DATE OF SERVICE: 05/11/19 HISTORY: I have nothing no girlfriend. No job and just a cocaine addict this 34-year-old male was previously admitted following a Seroquel overdose, who now states that when he was discharged immediately went back to using drugs. VITAL SIGNS: See below. NEW TEST RESULTS: None. CURRENT MEDICATIONS: See below. MENTAL STATUS EXAMINATION: Patient is a [age]-year old male, who is irritable, stating that Seroquel is the only thing that helps him sleep. Apparently this time. He has broken up with his girlfriend and quit his job. He content. He continues to use cocaine Speech: Is. No abnormalities. Language skills are intact. Thought processes including:. No gross disturbance of thought process. Thought content:. Denies hallucinations, delusions, obsessions, compulsions, phobias. Abstract reasoning, and computation: Able to abstract. Description of associations:. No loose associations. Description of abnormal or psychotic thoughts:. No psychotic thought. Described. Judgment: Poor. Insight:. Poor. Orientation: 3. Recent and remote memory: Intact. Attention span and concentration:. No disturbance. Language:. As above. Fund of knowledge:, Full. Mood:, Sad, angry. Affect:, Congruent. DIAGNOSES: 1.. Adjustment disorder with depressed mood. 2.. Cocaine dependence. 3., Personality disorder, cluster. ASSESSMENT: As above MANAGEMENT PLAN:. Patient needs to be in drug rehabilitation, but this may be limited by his personality and his insurance. TIME SPENT: 35 minutes. Vital Signs Vital Signs Date Time Temp Pulse Resp B/P (MAP) Pulse Ox O2 Delivery O2 Flow Rate FiO2 05/11/19 06:41 97.7 81 20 147/83 (104) 05/09/19 15:39 99 Room Air Current Medications Current Medications Acetaminophen (Tylenol Tab) 650 mg Q6HP PRN PO HEADACHE or DISCOMFORT; Start 05/09/19 at 15:00 Al Hydrox/Mg Hydrox/Simethicone (Mylanta) 30 ml Q4HP PRN PO HEART BURN/INDIGESTION; Start 05/09/19 at 15:00 Citalopram Hydrobromide (CeleXA) 20 mg DAILY PO Last administered on 05/11/19at 08:05; Start 6/15/19 at 09:00; Stop 05/11/19 at 13:01; Status DC Citalopram Hydrobromide (CeleXA) 40 mg DAILY PO ; Start 05/12/19 at 09:00 Home Med (Med Rec Complete!) ASDIRECTED XX ; Start 05/09/19 at 16:15; Stop 05/09/19 at 16:15; Status DC Magnesium Hydroxide (Milk Of Magnesia) 30 ml DAILYPRN PRN PO CONSTIPATION; Start 05/09/19 at 15:00 Nicotine (Nicoderm Cq 21mg) 1 patch DAILY TD ; Start 05/10/19 at 09:00 Quetiapine Fumarate (SEROquel) 100 mg QHS PO Last administered on 05/10/19at 20:07; Start 05/09/19 at 21:00 Trazodone HCl (Desyrel) 50 mg QHSP PRN PO INSOMNIA; Start 05/09/19 at 15:00; Status Cancel Allergies Coded Allergies: No Known Allergies (Unverified , 10/14/14) MARIA TAO MD May 11, 2019 14:06
[2019-05-11] MEDS: hydrOXYzine 50 MG TAB PO PRN ×2 (15:54→21:55)
[2019-05-11 18:00] VITALS: BP 131/65
[2019-05-11] MEDS: QUEtiapine FUMARATE 100 MG TAB PO SCH (20:27)
[2019-05-12 06:14] VITALS: BP 129/72
[2019-05-12] MEDS: NICOTINE 21MG/24HR 1 EA TRANSDERMAL TD SCH (09:00)
[2019-05-12] MEDS: hydrOXYzine 50 MG TAB PO PRN ×3 (09:05→21:19)
[2019-05-12] MEDS: CitaloPRAM (CeleXA) 20 MG TAB PO SCH (09:06)
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
[2019-05-12 18:14] VITALS: BP 113/64
[2019-05-12] MEDS: QUEtiapine FUMARATE 200 MG TAB PO SCH (20:10)
[2019-05-13 06:42] VITALS: BP 93/51
[2019-05-13] MEDS: NICOTINE 21MG/24HR 1 EA TRANSDERMAL TD SCH (09:00)
[2019-05-13] MEDS: CitaloPRAM (CeleXA) 20 MG TAB PO SCH ×2 (09:00→10:21)
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
[2019-05-13] MEDS: hydrOXYzine 50 MG TAB PO PRN ×3 (10:21→20:41)
[2019-05-13 17:52] VITALS: BP 112/75
[2019-05-13 18:00] VITALS: BP 112/75
[2019-05-13] MEDS: QUEtiapine FUMARATE 200 MG TAB PO SCH (20:40)
[2019-05-14 06:42] VITALS: BP 102/58
[2019-05-14] MEDS: NICOTINE 21MG/24HR 1 EA TRANSDERMAL TD SCH (09:00)
[2019-05-14] MEDS: CitaloPRAM (CeleXA) 20 MG TAB PO SCH (09:38)
[2019-05-14] MEDS: hydrOXYzine 50 MG TAB PO PRN ×4 (09:39→22:09)
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
[2019-05-14 18:21] VITALS: BP 132/81
[2019-05-14] MEDS: QUEtiapine FUMARATE 200 MG TAB PO SCH (20:15)
[2019-05-15 06:46] VITALS: BP 128/73
[2019-05-15] MEDS: hydrOXYzine 50 MG TAB PO PRN ×4 (08:28→23:01)
[2019-05-15] MEDS: FLUoxetine 10 MG CAP PO SCH (08:28)
[2019-05-15] MEDS: NICOTINE 21MG/24HR 1 EA TRANSDERMAL TD SCH (08:30)
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
[2019-05-15 18:10] VITALS: BP 123/68
[2019-05-15] MEDS: QUEtiapine FUMARATE 200 MG TAB PO SCH (21:27)
[2019-05-16 07:07] VITALS: BP 110/58
[2019-05-16] MEDS: hydrOXYzine 50 MG TAB PO PRN ×4 (08:23→21:51)
[2019-05-16] MEDS: NICOTINE 21MG/24HR 1 EA TRANSDERMAL TD SCH (08:24)
[2019-05-16] MEDS: FLUoxetine 10 MG CAP PO SCH (08:24)
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
[2019-05-16 18:12] VITALS: BP 126/66
[2019-05-16] MEDS ORDERED: QUEtiapine FUMARATE 200 MG TAB PO SCH (21:00)
[2019-05-16] MEDS: QUEtiapine FUMARATE 200 MG TAB PO SCH ×2 (21:06→21:49)
[2019-05-17 06:37] VITALS: BP 93/50
[2019-05-17] MEDS: FLUoxetine 10 MG CAP PO SCH (08:50)
[2019-05-17] MEDS: hydrOXYzine 50 MG TAB PO PRN ×4 (08:50→21:23)
[2019-05-17] MEDS: NICOTINE 21MG/24HR 1 EA TRANSDERMAL TD SCH (08:50)
[2019-05-17 19:17] VITALS: BP 140/72
[2019-05-17] MEDS: QUEtiapine FUMARATE 200 MG TAB PO SCH (21:23)
[2019-05-18] MEDS: hydrOXYzine 50 MG TAB PO PRN ×4 (06:14→21:12)
[2019-05-18 06:55] VITALS: BP 104/68
[2019-05-18] MEDS: FLUoxetine 10 MG CAP PO SCH (08:01)
[2019-05-18] MEDS: NICOTINE 21MG/24HR 1 EA TRANSDERMAL TD SCH (08:02)
[2019-05-18 18:25] VITALS: BP 130/79
[2019-05-18] MEDS: QUEtiapine FUMARATE 200 MG TAB PO SCH (21:12)
[2019-05-18] MEDS: ACETAMINOPHEN TAB 650MG DOSE (2X325MG) PO PRN (21:59)
[2019-05-19] MEDS: hydrOXYzine 50 MG TAB PO PRN ×3 (06:15→20:08)
[2019-05-19 06:52] VITALS: BP 146/77
[2019-05-19] MEDS: NICOTINE 21MG/24HR 1 EA TRANSDERMAL TD SCH (09:00)
[2019-05-19] MEDS: FLUoxetine 10 MG CAP PO SCH (09:03)
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
[2019-05-19] MEDS ORDERED: FLUoxetine 10 MG CAP PO ONE (11:00)
[2019-05-19 18:00] VITALS: BP 133/88
[2019-05-19] MEDS: MIRTAZAPINE 15 MG TAB PO SCH (21:30)
[2019-05-19] MEDS: QUEtiapine FUMARATE 200 MG TAB PO SCH (21:31)
[2019-05-19] MEDS: PRAZOSIN 1 MG CAP PO SCH (21:31)
[2019-05-19] MEDS: PILL CUTTER 1 EACH XX PRN (21:31)
[2019-05-20] MEDS: hydrOXYzine 50 MG TAB PO PRN ×4 (06:13→21:32)
[2019-05-20 06:19] VITALS: BP 128/62
[2019-05-20] MEDS: FLUoxetine 20 MG CAP PO SCH (08:26)
[2019-05-20] MEDS: NICOTINE 21MG/24HR 1 EA TRANSDERMAL TD SCH (09:00)
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
[2019-05-20 18:00] VITALS: BP 120/66
[2019-05-20] MEDS: PRAZOSIN 1 MG CAP PO SCH (21:31)
[2019-05-20] MEDS: MIRTAZAPINE 15 MG TAB PO SCH (21:31)
[2019-05-20] MEDS: QUEtiapine FUMARATE 200 MG TAB PO SCH (21:32)
[2019-05-20] MEDS: PILL CUTTER 1 EACH XX PRN (21:34)
[2019-05-21 06:29] VITALS: BP 107/55
[2019-05-21] MEDS: hydrOXYzine 50 MG TAB PO PRN ×3 (08:06→20:38)
[2019-05-21] MEDS: FLUoxetine 20 MG CAP PO SCH (08:06)
[2019-05-21] MEDS: NICOTINE 21MG/24HR 1 EA TRANSDERMAL TD SCH (08:06)
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
[2019-05-21 18:08] VITALS: BP 134/76
[2019-05-21] MEDS: ACETAMINOPHEN TAB 650MG DOSE (2X325MG) PO PRN (20:38)
[2019-05-21] MEDS: QUEtiapine FUMARATE 200 MG TAB PO SCH (21:45)
[2019-05-21] MEDS: MIRTAZAPINE 15 MG TAB PO SCH (21:45)
[2019-05-21] MEDS: PRAZOSIN 1 MG CAP PO SCH (21:46)
[2019-05-22 06:41] VITALS: BP 115/62
[2019-05-22] MEDS: hydrOXYzine 50 MG TAB PO PRN ×3 (08:33→20:13)
[2019-05-22] MEDS: FLUoxetine 20 MG CAP PO SCH (08:33)
[2019-05-22] MEDS: NICOTINE 21MG/24HR 1 EA TRANSDERMAL TD SCH (08:33)
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
[2019-05-22 18:00] VITALS: BP 136/86
[2019-05-22] MEDS: MIRTAZAPINE 15 MG TAB PO SCH (20:13)
[2019-05-22] MEDS: QUEtiapine FUMARATE 200 MG TAB PO SCH (20:14)
[2019-05-22] MEDS: PRAZOSIN 1 MG CAP PO SCH (20:14)
[2019-05-23 07:11] VITALS: BP 109/54
[2019-05-23] MEDS: NICOTINE 21MG/24HR 1 EA TRANSDERMAL TD SCH (08:49)
[2019-05-23] MEDS: hydrOXYzine 50 MG TAB PO PRN ×3 (08:49→20:02)
[2019-05-23] MEDS: FLUoxetine 20 MG CAP PO SCH (08:50)
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
[2019-05-23 18:15] VITALS: BP 135/81
[2019-05-23] MEDS: PRAZOSIN 1 MG CAP PO SCH (20:02)
[2019-05-23] MEDS: MIRTAZAPINE 15 MG TAB PO SCH (20:02)
[2019-05-23] MEDS: QUEtiapine FUMARATE 200 MG TAB PO SCH (20:03)
[2019-05-23] MEDS: PILL CUTTER 1 EACH XX PRN (20:04)
[2019-05-24 06:39] VITALS: BP 103/54
[2019-05-24] MEDS: NICOTINE 21MG/24HR 1 EA TRANSDERMAL TD SCH (09:00)
[2019-05-24] MEDS: hydrOXYzine 50 MG TAB PO PRN ×3 (09:19→21:11)
[2019-05-24] MEDS: FLUoxetine 20 MG CAP PO SCH (09:19)
[2019-05-24] MEDS: ACETAMINOPHEN TAB 650MG DOSE (2X325MG) PO PRN (13:40)
[2019-05-24 18:00] VITALS: BP 142/85
[2019-05-24] MEDS: PRAZOSIN 1 MG CAP PO SCH (21:11)
[2019-05-24] MEDS: MIRTAZAPINE 15 MG TAB PO SCH (21:11)
[2019-05-24] MEDS: QUEtiapine FUMARATE 200 MG TAB PO SCH (21:12)
[2019-05-24] MEDS: PILL CUTTER 1 EACH XX PRN (21:35)
[2019-05-25 06:39] VITALS: BP 111/61
[2019-05-25] MEDS: NICOTINE 21MG/24HR 1 EA TRANSDERMAL TD SCH (08:03)
[2019-05-25] MEDS: hydrOXYzine 50 MG TAB PO PRN ×3 (08:03→20:06)
[2019-05-25] MEDS: FLUoxetine 20 MG CAP PO SCH (08:03)
[2019-05-25] MEDS: ACETAMINOPHEN TAB 650MG DOSE (2X325MG) PO PRN (12:17)
[2019-05-25] MEDS ORDERED: CEPACOL LOZENGE PO PRN (13:45)
[2019-05-25 18:00] VITALS: BP 125/73
[2019-05-25 19:40] LABS: AMPHETAMINES LEVEL URINE NEGATIVE (NEGATIVE); BARBITURATES URINE NEGATIVE (NEGATIVE); BENZODIAZEPINES URINE NEGATIVE (NEGATIVE); CANNABINOIDS URINE NEGATIVE (NEGATIVE); COCAINE METABOLITE URINE NEGATIVE (NEGATIVE); METHADONE URINE NEGATIVE (NEGATIVE); OPIATES URINE NEGATIVE (NEGATIVE); PHENCYCLIDINE URINE NEGATIVE (NEGATIVE)
[2019-05-25] MEDS: PRAZOSIN 1 MG CAP PO SCH (21:17)
[2019-05-25] MEDS: MIRTAZAPINE 15 MG TAB PO SCH (21:18)
[2019-05-25] MEDS: QUEtiapine FUMARATE 200 MG TAB PO SCH (21:19)
[2019-05-26 06:53] VITALS: BP 107/58
[2019-05-26] MEDS: NICOTINE 21MG/24HR 1 EA TRANSDERMAL TD SCH (08:21)
[2019-05-26] MEDS: FLUoxetine 20 MG CAP PO SCH (08:21)
[2019-05-26] MEDS: hydrOXYzine 50 MG TAB PO PRN ×2 (08:21→18:16)
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
[2019-05-26 18:18] VITALS: BP 135/83
[2019-05-26] MEDS: QUEtiapine FUMARATE 200 MG TAB PO SCH (21:06)
[2019-05-26] MEDS: MIRTAZAPINE 15 MG TAB PO SCH (21:06)
[2019-05-26] MEDS: PRAZOSIN 1 MG CAP PO SCH (21:07)
[2019-05-27 06:39] VITALS: BP 120/75
[2019-05-27] MEDS: NICOTINE 21MG/24HR 1 EA TRANSDERMAL TD SCH (09:00)
[2019-05-27] MEDS: hydrOXYzine 50 MG TAB PO PRN ×3 (09:06→22:49)
[2019-05-27] MEDS: FLUoxetine 20 MG CAP PO SCH (09:06)
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
[2019-05-27] MEDS: ACETAMINOPHEN TAB 650MG DOSE (2X325MG) PO PRN ×2 (15:30→22:51)
[2019-05-27 18:00] VITALS: BP 123/75
[2019-05-27] MEDS: PRAZOSIN 1 MG CAP PO SCH (22:49)
[2019-05-27] MEDS: MIRTAZAPINE 15 MG TAB PO SCH (22:49)
[2019-05-27] MEDS: QUEtiapine FUMARATE 200 MG TAB PO SCH (22:49)
[2019-05-28 06:39] VITALS: BP 102/56
[2019-05-28] MEDS: NICOTINE 21MG/24HR 1 EA TRANSDERMAL TD SCH (08:20)
[2019-05-28] MEDS: FLUoxetine 20 MG CAP PO SCH (08:21)
[2019-05-28] MEDS: hydrOXYzine 50 MG TAB PO PRN ×2 (08:21→17:14)
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
[2019-05-28 18:15] VITALS: BP 141/62
[2019-05-28] MEDS: QUEtiapine FUMARATE 200 MG TAB PO SCH (23:57)
[2019-05-28] MEDS: PRAZOSIN 1 MG CAP PO SCH (23:58)
[2019-05-28] MEDS: MIRTAZAPINE 15 MG TAB PO SCH (23:59)
[2019-05-29 06:27] VITALS: BP 125/66
[2019-05-29] MEDS: NICOTINE 21MG/24HR 1 EA TRANSDERMAL TD SCH (08:08)
[2019-05-29] MEDS: FLUoxetine 20 MG CAP PO SCH (08:14)
[2019-05-29] MEDS: hydrOXYzine 50 MG TAB PO PRN ×4 (08:15→19:40)
[2019-05-29 18:04] VITALS: BP 141/88
[2019-05-29 21:38] VITALS: BP 131/84
[2019-05-29] MEDS: PRAZOSIN 1 MG CAP PO SCH (21:38)
[2019-05-29] MEDS: QUEtiapine FUMARATE 200 MG TAB PO SCH (21:38)
[2019-05-29] MEDS: MIRTAZAPINE 15 MG TAB PO SCH (21:39)
[2019-05-30 05:58] VITALS: BP 141/61
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
[2019-05-30] MEDS: FLUoxetine 20 MG CAP PO SCH (08:34)
[2019-05-30] MEDS: hydrOXYzine 50 MG TAB PO PRN (08:35)
[2019-05-30] MEDS: NICOTINE 21MG/24HR 1 EA TRANSDERMAL TD SCH (08:50)
== END 2019-05-30 09:00 | DRG 754 ==
LOC: M ED 12:45 → M ED INP 14:57 → M PSY 15:55
PROVIDERS: ADMIT Psychiatry & Neurology Child & Adolescent Psychiatry; ATTEND Psychiatry & Neurology Psychiatry
DX: F43.21 Adjustment disorder with depressed mood (principal); F60.2 Antisocial personality disorder; F12.10 Cannabis abuse, uncomplicated; F60.89 Other specific personality disorders; F17.200 Nicotine dependence, unspecified, uncomplicated; F14.20 Cocaine dependence, uncomplicated; Z91.5 Personal history of self-harm; Z79.899 Other long term (current) drug therapy; Z91.14 Patient's other noncompliance with medication regimen

== ENCOUNTER 2020-04-18 13:00 | Emergency (ER) | payer MEDICAID ==
[~2020-04-18] VITALS: Ht 167.6 cm; Wt 83.3 kg
[2020-04-18 13:00] VITALS: BP 196/86
[~2020-04-18 13:00] MED LIST changes: +ACET25TA12 PO; +ADVITAB PO; -FLUO20CA19 PO; +FLUO20CA22 PO; +HYDR1TAB33 PO; +HYDR50TA70 PO; -HYDRO50TAB PO; +PROZ40CA PO; +QUET100T2 PO; -QUET1TAB8 PO; +SERO1TAB2 PO; +VIST50CA PO
[2020-04-18] MEDS ORDERED: DIVA500T94 PO (13:12)
[2020-04-18] MEDS ORDERED: IBUP80TA PO (13:12)
[2020-04-18] MEDS ORDERED: HYDR-3713 PO (13:12)
[2020-04-18] MEDS ORDERED: QUET200T2 PO (13:12)
== END 2020-04-18 14:01 | disposition left against medical advice (07) ==
LOC: M ED 13:00
DX: R07.89 Other chest pain (principal); F32.9 Major depressive disorder, single episode, unspecified; F41.9 Anxiety disorder, unspecified; F17.200 Nicotine dependence, unspecified, uncomplicated; Z79.899 Other long term (current) drug therapy

== ENCOUNTER 2022-10-23 10:26 | Inpatient (IN) | payer MEDICAID, OTHER ==
[~2022-10-23] VITALS: Ht 167.6 cm; Wt 92.9 kg
[~2022-10-23 10:26] MED LIST changes: +DIVA500T94 PO; +HYDR-3713 PO; +IBUP80TA PO; -QUET1TAB10 PO; +QUET200T2 PO; +QUET300T2 PO
[2022-10-23 12:07] LABS: HEMATOCRIT 46.2 % (42.0-52.0); HEMOGLOBIN 15.5 g/dl (13.5-17.5); MEAN CORPUSCULAR HGB CONC 33.5 g/dl (32.0-36.5); MEAN CORPUSCULAR VOLUME 89.4 fl (80.0-96.0); PLATELET COUNT, AUTOMATED 243 10^3/uL (150-450); RED BLOOD COUNT 5.17 10^6/uL (4.30-6.10); WHITE BLOOD COUNT 10.6 10^3/uL (4.0-10.0)
[2022-10-23 12:40] LABS: CHLORIDE LEVEL 106 MMOL/L (98-107); SODIUM LEVEL 142 MMOL/L (136-145)
[2022-10-23 12:41] LABS: ALBUMIN 3.6 G/DL (3.2-5.2); CARBON DIOXIDE LEVEL 24 MMOL/L (20-31)
[2022-10-23 12:45] LABS: GLUCOSE, FASTING 93 MG/DL (60-100)
[2022-10-23 12:46] LABS: BARBITURATES URINE NEGATIVE (NEGATIVE); BENZODIAZEPINES URINE NEGATIVE (NEGATIVE); BLOOD UREA NITROGEN 13 MG/DL (9-23); CALCIUM LEVEL 8.8 MG/DL (8.5-10.1); COCAINE METABOLITE URINE NEGATIVE (NEGATIVE); METHADONE URINE NEGATIVE (NEGATIVE); PHENCYCLIDINE URINE NEGATIVE (NEGATIVE)
[2022-10-23 12:47] LABS: ALKALINE PHOSPHATASE 68 U/L (46-116); ETHYL ALCOHOL (ETHANOL) 0.005 % (0.000-0.010); GLOMERULAR FILTRATION RATE > 60.0 (>60)
[2022-10-23 12:48] LABS: ACETAMINOPHEN LEVEL < 2.0 UG/ML (10.0-20.0); ALT/SGPT 16 U/L (7.0-40); AST/SGOT 11 U/L (<34); BILIRUBIN,DIRECT < 0.1 MG/DL (<0.4); BILIRUBIN,TOTAL < 0.2 MG/DL (0.3-1.2); SALICYLATE LEVEL < 3.0 MG/DL (<30); TOTAL PROTEIN 6.6 G/DL (5.7-8.2)
[2022-10-23 12:49] LABS: RSV AMPLIFICATION NEGATIVE (NEGATIVE)
[2022-10-23 12:57] LABS: THYROID STIMULATING HORMONE 2.165 uIU/ML (0.55-4.78)
[2022-10-23 13:12] LABS: AMPHETAMINES LEVEL URINE POSITIVE (NEGATIVE); CANNABINOIDS URINE POSITIVE (NEGATIVE); OPIATES URINE POSITIVE (NEGATIVE); POTASSIUM SERUM 4.6 MMOL/L (3.5-5.1)
[2022-10-23 15:51] LABS: VALPROIC ACID (DEPAKOTE) 47.5 UG/ML (50.0-100.0)
[2022-10-23] MEDS ORDERED: QUET300T2 PO (18:37)
[2022-10-23] MEDS ORDERED: HOME MED LIST COMPLETE! XX SCH (18:40)
[2022-10-23] MEDS ORDERED: QUEtiapine FUMARATE 200 MG TAB PO ONE (21:00)
[2022-10-23] MEDS ORDERED: DIVALPROEX 500 MG TAB PO ONE (21:00)
[2022-10-24] MEDS: NICOTINE 21MG/24HR 1 EA TRANSDERMAL TD SCH (09:00)
[2022-10-24] MEDS ORDERED: MAALOX 30 ML SUSP *UDC PO PRN (12:00)
[2022-10-24] MEDS ORDERED: IBUPROFEN 400MG TAB PO PRN (12:00)
[2022-10-24] MEDS ORDERED: MOM 30ML SUSPENSION UDC PO PRN (12:00)
[2022-10-24 15:35] VITALS: BP 130/80
[2022-10-24] MEDS: OLANZapine ORAL DISINTEGRATING TAB 5MG PO PRN (18:46)
[2022-10-24] MEDS: DIVALPROEX 500 MG TAB PO SCH (20:39)
[2022-10-24] MEDS: QUEtiapine FUMARATE 100 MG TAB PO SCH (20:39)
[2022-10-25 06:13] VITALS: BP 105/70
[2022-10-25] MEDS: NICOTINE 21MG/24HR 1 EA TRANSDERMAL TD SCH (09:00)
[2022-10-25] MEDS ORDERED: ONDANSETRON 4MG TAB PO PRN (11:10)
[2022-10-25] MEDS: cloNIDine 0.1MG TABLET PO PRN ×2 (11:32→22:17)
[2022-10-25] MEDS: OLANZapine ORAL DISINTEGRATING TAB 5MG PO PRN ×2 (14:48→22:36)
[2022-10-25] MEDS: DIVALPROEX 500 MG TAB PO SCH (22:15)
[2022-10-25] MEDS: QUEtiapine FUMARATE 100 MG TAB PO SCH (22:15)
[2022-10-26] MEDS: NICOTINE 21MG/24HR 1 EA TRANSDERMAL TD SCH (08:26)
[2022-10-26] MEDS: cloNIDine 0.1MG TABLET PO PRN ×2 (08:31→21:00)
[2022-10-26] MEDS: OLANZapine ORAL DISINTEGRATING TAB 5MG PO PRN (15:43)
[2022-10-26] MEDS: NICOTINE POLACRILEX 2 MG GUM PO PRN ×2 (15:56→21:02)
[2022-10-26 18:19] VITALS: BP 129/58
[2022-10-26] MEDS: QUEtiapine FUMARATE 100 MG TAB PO SCH (21:00)
[2022-10-26] MEDS: DIVALPROEX 500 MG TAB PO SCH (21:01)
[2022-10-27 06:39] VITALS: BP 110/63
[2022-10-27 08:31] VITALS: BP 110/63
[2022-10-27] MEDS: cloNIDine 0.1MG TABLET PO PRN (08:31)
[2022-10-27] MEDS ORDERED: DIVA500T94 PO (11:18)
[2022-10-27] MEDS ORDERED: CLONI1TA PO (11:18)
[2022-10-27] MEDS ORDERED: OLAN5ZYD PO (11:18)
[2022-10-27] MEDS ORDERED: QUET300T2 PO (11:18)
[2022-10-27] MEDS ORDERED: NICO2GUM PO (11:18)
== END 2022-10-27 12:01 | disposition home or self-care (01) | DRG 753 ==
LOC: M ED 10:26 → M ED INP 10-24 11:56 → M PSY 10-24 15:38
PROVIDERS: ADMIT Psychiatry & Neurology Psychiatry; ATTEND Student in an Organized Health Care Education/Training Program
DX: F31.9 Bipolar disorder, unspecified (principal); F60.2 Antisocial personality disorder; F11.90 Opioid use, unspecified, uncomplicated; F15.90 Other stimulant use, unspecified, uncomplicated; F12.90 Cannabis use, unspecified, uncomplicated; F14.90 Cocaine use, unspecified, uncomplicated; Z20.822 Contact with and (suspected) exposure to COVID-19; R45.851 Suicidal ideations; Z91.51 Personal history of suicidal behavior; F17.210 Nicotine dependence, cigarettes, uncomplicated; D72.829 Elevated white blood cell count, unspecified; Z79.899 Other long term (current) drug therapy; Z62.810 Personal history of physical and sexual abuse in childhood; Z91.410 Personal history of adult physical and sexual abuse

== ENCOUNTER → 2022-12-15 | Outpatient (REF) ==
[~2022-12-15] MED LIST changes: +CLONI1TA PO; +NICO2GUM PO; +OLAN5ZYD PO
== END ==
LOC: M LAB 08:20